=== PATIENT | male | born 1960 | race African-American/Black ===

== ENCOUNTER → 2020-05-01 15:13 | Outpatient (BNVA) | payer OTHER, SELFPAY | PROVIDERS: Visit Provider Surgery | DX: Z76.89 Persons encountering health services in other specified circumstances (principal) ==

== ENCOUNTER 2020-05-23 08:28 | Day surgery (SDC) | payer OTHER, SELFPAY ==
[2020-05-19 12:58] VITALS: BMI 27.3
--- NOTE | 2020-05-21 15:47 | HO.ANESPROP2 ---
Documented by User: Lesa Ngueyn 05/21/20 15:49 HPI - Anesthesia Eval Consult details Narrative: 60yo M Colonoscopy PMFSH Past Medical History Medical History BPH (benign prostatic hyperplasia) Hyperlipidemia Family History Family History Father History of leukemia Surgical History Surgical History H/O colonoscopy Social History Social History Alcohol intake: current Alcohol intake frequency: holidays/special occasions only Smoking Status: Never smoker Use of substances other than those prescribed or required for medical reasons: No Have you been hit, kicked, punched, or otherwise hurt by someone within the past year? If so, by whom?: No Advance Directives Information Provided: No Recently lost weight without trying: No Meds Allergies Allergy/AdvReac Type Severity Reaction Status Date / Time No Known Allergies Allergy Verified 05/23/20 08:47 Home Medications Medication Instructions Recorded Confirmed Type ezetimibe 10 mg tablet 10 mg PO DAILY 05/01/20 05/19/20 History oxybutynin chloride 5 mg 5 mg PO DAILY 05/01/20 05/19/20 History tablet,extended release 24 hr tamsulosin 0.4 mg capsule 0.4 mg PO DAILY 05/01/20 05/19/20 History simvastatin 40 mg PO BEDTIME 05/19/20 05/19/20 History Exam Exam Date and Time: May 21, 2020 1547 Height,Weight and Vital Signs: Height 6 ft Weight 91.626 kg Pertinent Lab Results Pertinent Lab Results: Laboratory Tests 04/07/20 04/07/20 09:18 09:18 WBC 2.6 L Hgb 14.3 Hct 42.1 Plt Count 178 Sodium 140 Potassium 4.3 Chloride 106 BUN 10 Creatinine 1.00 Assessment and Plan Assessment Anesthesia Assessment: Chart Reviewed Documented by User: Jeyson Eddy 05/23/20 09:30 PMFSH Past Medical History Medical History BPH (benign prostatic hyperplasia) Hyperlipidemia Family History Family History Father History of leukemia Surgical History Surgical History H/O colonoscopy Social History Social History Alcohol intake: current Alcohol intake frequency: holidays/special occasions only Smoking Status: Never smoker Use of substances other than those prescribed or required for medical reasons: No Have you been hit, kicked, punched, or otherwise hurt by someone within the past year? If so, by whom?: No Advance Directives Information Provided: No Recently lost weight without trying: No Meds Allergies Allergy/AdvReac Type Severity Reaction Status Date / Time No Known Allergies Allergy Verified 05/23/20 08:47 Home Medications Medication Instructions Recorded Confirmed Type ezetimibe 10 mg tablet 10 mg PO DAILY 05/01/20 05/19/20 History oxybutynin chloride 5 mg 5 mg PO DAILY 05/01/20 05/19/20 History tablet,extended release 24 hr tamsulosin 0.4 mg capsule 0.4 mg PO DAILY 05/01/20 05/19/20 History simvastatin 40 mg PO BEDTIME 05/19/20 05/19/20 History Exam Airway Mallampati Class: I TM Dist: >3cm Neck ROM: Full Assessment and Plan Assessment Anesthesia Assessment: Anesthesia Plan Discussed and Chart Reviewed Final Anesthetic Review NPO: Yes ASA Class: I Final Preanesthetic Review: No Changes in Pt Med Stat, Meds/Allgs Chart Reviewed, Consent Obtained/Reviewed and Anes Risks/Benef Reviewed Patient Risk: Low Procedure Risk: Low Anesthetic Plan Anesthetic Plan: MAC: and Agree w/ Assess. and Plan Disposition: Standard PACU
[2020-05-23 08:38] VITALS: BP 151/85; RESP 18; TEMP 36.8; O2SAT 98
--- NOTE | 2020-05-23 09:16 | MHC.SHP ---
Pre-Procedural Eval Section B Chief Complaint: Screening Allergies: Allergies Allergy/AdvReac Type Severity Reaction Status Date / Time No Known Allergies Allergy Verified 05/23/20 08:47 Plan Patient has been examined and remains a candidate for the planned procedure
[2020-05-23 10:00] VITALS: BP 134/67; PULSE 73; RESP 20; TEMP 36.4; O2SAT 95
--- NOTE | 2020-05-23 10:06 | PM.OP ---
Brief Operative Note Date of Service: 05/23/20 Pre-op diagnosis: colon ca screen Post-op diagnosis: same Procedure: colonoscopy Surgeon: Claude Zavala MD Anesthesia: MAC Estimated blood loss (mL): 0 Pathology: none sent Condition: stable Disposition: PACU
[2020-05-23 10:15] VITALS: BP 123/76; PULSE 73; RESP 18; O2SAT 98
--- NOTE | 2020-05-23 10:20 | OP_ITS ---
SURGEON: Claude Zavala MD INDICATIONS: The patient is a 60-year-old male, here for colon cancer screening by colonoscopy. He understood the techniques of procedure. He was aware of the risks, benefits, and alternatives. PREOPERATIVE DIAGNOSIS: Colon cancer screening. POSTOPERATIVE DIAGNOSIS: External hemorrhoids, otherwise, normal colonoscopy findings. PROCEDURE PERFORMED: ESTIMATED BLOOD LOSS: COMPLICATIONS: ANESTHESIA: ASSISTANTS: SPECIMENS: DESCRIPTION OF PROCEDURE: He was brought to the operating room, placed in left lateral decubitus position under monitored anesthesia care. A full digital rectal exam was done. He did have external hemorrhoids that were moderate-sized. I gently inserted the Olympus colonoscope into the anal orifice and advanced this with insufflation all the way to the cecum. The cecum was intubated. The cecum was identified by visualization of the cecal valve as well as the appendiceal orifice. The cecal mucosa was unremarkable. The scope was gradually withdrawn with careful examination of the entire colonic mucosa being done with scope withdrawal. The patient had good bowel prep, so it was unlikely that any lesion had been missed. The rectum was reached. There were no lesions seen. The anal canal was unremarkable except for external hemorrhoids. The scope was then withdrawn completely with desufflation. The patient tolerated the procedure well. There were no complications noted. He falls at average risk for colon cancer, so next colonoscopy maybe in the next 10 years. PROCEDURE DONE: Colonoscopy for colon cancer screening. MD MARIE Lilly/TAYLOR / [id number]
--- NOTE | 2020-05-23 10:24 | HO.POSTANES ---
Post Anesthesia Evaluation Post Anesthesia Evaluation Vital Signs: Vital Signs Temp Pulse Resp BP Pulse Ox 05/23/20 10:15 73 18 123/76 98 05/23/20 10:00 97.6 F 73 20 134/67 95 05/23/20 08:38 98.3 F 18 151/85 H 98 Anesthesia: Monitored Mental Status: Awake Pain Control: Satisfactory Nausea/Vomiting: None Hydration: Adequate Anesthesia-Related Issues: No Anes. Related Issues
== END 2020-05-23 11:15 | disposition home or self-care (01) ==
PROVIDERS: Visit Provider Surgery
PROC: 0DJD8ZZ Inspection of Lower Intestinal Tract, Via Natural or Artificial Opening Endoscopic (ICD-10-PCS; CPT 45378; principal; 2020-05-23 09:40)
DX: Z12.11 Encounter for screening for malignant neoplasm of colon (principal); K64.4 Residual hemorrhoidal skin tags; N40.0 Benign prostatic hyperplasia without lower urinary tract symptoms; E78.5 Hyperlipidemia, unspecified; Z79.899 Other long term (current) drug therapy; Z80.6 Family history of leukemia
CPT/HCPCS: 45378; J3010

== ENCOUNTER → 2020-06-04 09:18 | Outpatient (BNVA) | payer OTHER, SELFPAY | PROVIDERS: Visit Provider Surgery | DX: Z76.89 Persons encountering health services in other specified circumstances (principal) ==

== ENCOUNTER 2020-09-08 13:46 | Outpatient (REF) | payer OTHER, SELFPAY ==
[2020-09-08 15:00] LABS: Hematocrit 42.1 % (42-52); Mean Corpuscular HGB Conc 33.3 g/dl (31.0-36.0); Mean Corpuscular Hemoglobin 28.8 pg (27.0-33.0); Mean Corpuscular Volume 86.6 fL (80-98); Mean Platelet Volume 10.6 fL (9.4-12.4); Platelet Count 244 X10*3/uL (160-400); Red Blood Count 4.86 X10*6/uL (4.60-5.80); Red Cell Distribution Width 12.3 % (11.0-16.0); White Blood Count 3.2 X10*3/uL (4.8-10.8)
[2020-09-08 15:16] LABS: Glucose Urine UA NEG (NEG); Leukocyte Esterase Urine NEG (NEG); Nitrite Urine NEG (NEG); Specific Gravity - Urine 1.015 (1.005-1.025); Urine Blood NEG (NEG); Urine Ketones NEG (NEG); Urine Protein NEG (NEG-TRACE)
[2020-09-08 15:20] LABS: Appearance Urine CLEAR; Color Urine YELLOW
[2020-09-08 15:36] LABS: Alanine Aminotransferase 57 U/L (0-40); Albumin Level 4.6 g/dL (3.5-5.0); Alkaline Phosphatase 179 U/L (39-117); Anion Gap 14 (12-20); Aspartate Amino Transferase 33 U/L (5-37); Bilirubin Direct 0.5 mg/dL (0.0-0.5); Bilirubin Total 1.5 mg/dL (0.0-1.0); Blood Urea Nitrogen 10 mg/dL (9-16); Calcium 8.9 mg/dL (8.4-10.2); Carbon Dioxide 26 mmol/L (22-29); Chloride 105 mmol/L (96-108); Cholesterol 119 mg/dL; Estimated Glomerular Filt Rate > 60; Glucose Random 88 mg/dL (60-115); HDL Cholesterol 33 mg/dL; LDL Cholesterol Calculated 75 mg/dl; Potassium 4.2 mmol/L (3.3-5.1); Sodium 141 mmol/L (135-145); Total Protein 7.4 g/dL (6.5-8.0); Triglycerides 58 mg/dL
[2020-09-08 16:00] LABS: Prostate Specific Antigen Scr 3.21 ng/mL (<0.05-4.0)
== END 2020-09-08 13:47 | disposition home or self-care (01) ==
LOC: HO.LAB 13:46
PROVIDERS: PCP Internal Medicine; Visit Provider Internal Medicine
DX: N40.0 Benign prostatic hyperplasia without lower urinary tract symptoms (principal); E78.00 Pure hypercholesterolemia, unspecified; Z12.5 Encounter for screening for malignant neoplasm of prostate
CPT/HCPCS: 36415; 80048; 80061; 80076; 81003; 84153; 85027

== ENCOUNTER 2020-09-19 10:12 | Outpatient (REF) | payer OTHER, SELFPAY ==
--- NOTE | ~2020-09-19 | US_ITS ---
EXAMINATION: US VENOUS ULTRASOUND WITH DOPPLER LOWER EXTREMITY, LEFT CLINICAL INFORMATION: Acute embolism and thrombosis. COMPARISON: None TECHNIQUE: Ultrasound of the deep veins is performed from the hip to the calf with compression sonography and color and pulse Doppler assessment. Spectral analysis with color-flow imaging is performed. FINDINGS: There is normal venous compression and respiratory variation and augmented flow. The visualized common femoral vein, superficial femoral vein, profunda femoral vein, popliteal vein, and the trifurcation region shows no evidence of deep venous thrombosis. There is no significant popliteal fossa cyst. If the patient's symptoms persist, followup ultrasound in 5 days 7 days might be of value to exclude proximal propagation from a non-visualized calf vein. US/US venous duplex LE LT IMPRESSION: No DVT demonstrated in the left lower extremity.
== END 2020-09-19 10:13 | disposition home or self-care (01) ==
LOC: HO.US 10:12
PROVIDERS: PCP Internal Medicine; Visit Provider Nurse Practitioner Family
DX: I82.402 Acute embolism and thrombosis of unspecified deep veins of left lower extremity (principal)
CPT/HCPCS: 93971

== ENCOUNTER 2020-10-02 09:16 | Outpatient (REF) | payer OTHER, SELFPAY ==
--- NOTE | ~2020-10-02 | US_ITS ---
EXAMINATION: US ABDOMEN COMPLETE CLINICAL INFORMATION: Abnormal levels of other serum enzymes. COMPARISON: Ultrasound renal with bladder 03/11/2016. TECHNIQUE: Real-time imaging of the abdominal viscera. FINDINGS: PANCREAS: Normal. ABDOMINAL AORTA: The proximal, mid, and distal segments are normal in caliber. INFERIOR VENA CAVA: Visualized portions are normal. LIVER: Normal. The liver is normal in size. The liver contour is normal. Parenchymal echogenicity is normal. No focal hepatic lesion. There is no intrahepatic biliary duct dilatation seen. GALLBLADDER: There is a small, non-shadowing nonmobile polyp along the posterior gallbladder wall. The gallbladder is physiologically distended without evidence of stones, sludge, wall thickening or pericholecystic fluid. COMMON BILE DUCT: Normal in caliber measuring 0.6 cm in diameter. RIGHT KIDNEY: There is an anechoic cyst in the upper pole measuring 0.7 x 0.7 x 0.9 cm. No additional lesions are seen. No hydronephrosis or renal calculi. The kidney measures 11.0 cm in maximum dimension. LEFT KIDNEY: Normal. No hydronephrosis. No renal calculi or focal parenchymal lesions. The kidney measures 11.8 cm in maximum dimension. SPLEEN: Normal. The spleen measures 9.6 cm in maximum dimension. FREE FLUID: None. US/US abdomen complete IMPRESSION: Small, nonmobile gallbladder polyp measuring 3 mm. Small upper pole right renal cyst measuring 9 mm. The rest of the abdominal ultrasound is unremarkable.
== END 2020-10-02 09:17 | disposition home or self-care (01) ==
LOC: HO.US 09:16
PROVIDERS: Visit Provider Internal Medicine
DX: R74.8 Abnormal levels of other serum enzymes (principal)
CPT/HCPCS: 76700

== ENCOUNTER → 2020-10-06 07:50 | Outpatient (BNV) | payer OTHER, SELFPAY | PROVIDERS: PCP Internal Medicine; Referring Provider Internal Medicine; Visit Provider Internal Medicine | DX: D72.819 Decreased white blood cell count, unspecified (principal) | CPT/HCPCS: 99203; 99212; 99213 ==

== ENCOUNTER 2021-10-06 08:20 | Outpatient (REF) | payer OTHER, SELFPAY ==
[2021-10-06 09:08] LABS: Hematocrit 42.9 % (42.0-52.0); Mean Corpuscular HGB Conc 32.6 g/dl (31.0-36.0); Mean Corpuscular Hemoglobin 28.9 pg (27.0-33.0); Mean Corpuscular Volume 88.5 fL (80.0-98.0); Mean Platelet Volume 10.5 fL (9.4-12.4); Platelet Count 199 X10*3/uL (160-400); Red Blood Count 4.85 X10*6/uL (4.60-5.80); Red Cell Distribution Width 12.7 % (11.0-16.0)
[2021-10-06 09:48] LABS: Alanine Aminotransferase 42 U/L (0-40); Albumin Level 4.3 g/dL (3.5-5.0); Alkaline Phosphatase 141 U/L (39-117); Anion Gap 12 (12-20); Aspartate Amino Transferase 23 U/L (5-37); Bilirubin Direct 0.6 mg/dL (0.0-0.5); Bilirubin Total 1.8 mg/dL (0.0-1.0); Blood Urea Nitrogen 9 mg/dL (9-16); Calcium 9.3 mg/dL (8.4-10.2); Carbon Dioxide 26 mmol/L (22-29); Chloride 109 mmol/L (96-108); Cholesterol 119 mg/dL; Estimated Glomerular Filt Rate > 60; Glucose Random 100 mg/dL (60-115); HDL Cholesterol 39 mg/dL; LDL Cholesterol Calculated 72 mg/dl; Potassium 4.1 mmol/L (3.3-5.1); Sodium 143 mmol/L (135-145); Triglycerides 40 mg/dL
[2021-10-06 10:47] LABS: Appearance Urine CLEAR; Color Urine YELLOW; Glucose Urine UA NEG (NEG); Leukocyte Esterase Urine NEG (NEG); Nitrite Urine NEG (NEG); PH 7.5 (5.0-8.0); Urine Blood NEG (NEG); Urine Ketones NEG (NEG); Urine Protein NEG (NEG-TRACE)
== END 2021-10-06 08:21 | disposition home or self-care (01) ==
LOC: HO.LAB 08:20
PROVIDERS: PCP Internal Medicine; Visit Provider Internal Medicine
DX: I82.409 Acute embolism and thrombosis of unspecified deep veins of unspecified lower extremity (principal); R74.8 Abnormal levels of other serum enzymes; D72.819 Decreased white blood cell count, unspecified
CPT/HCPCS: 36415; 80048; 80061; 80076; 81003; 84443; 85027

== ENCOUNTER 2022-08-16 16:15 | Outpatient (REF) | payer OTHER, SELFPAY ==
--- NOTE | ~2022-08-16 | XR_ITS ---
EXAMINATION: XR CHEST CLINICAL INFORMATION: Pleurodynia. COMPARISON: None TECHNIQUE: 2 views of the chest were obtained. FINDINGS: No significant abnormality is noted involving the heart, lungs, mediastinum, bony thorax or soft tissues. XR/XR chest 2V IMPRESSION: Unremarkable examination.
== END 2022-08-16 16:16 | disposition home or self-care (01) ==
LOC: HO.HMGCX 16:15
PROVIDERS: PCP Internal Medicine; Visit Provider Internal Medicine
DX: R07.81 Pleurodynia (principal)
CPT/HCPCS: 71046

== ENCOUNTER 2022-08-21 08:48 | Outpatient (REF) | payer OTHER, SELFPAY ==
[2022-08-21 09:19] LABS: Hematocrit 43.4 % (42.0-52.0); Hemoglobin 14.4 g/dl (14.0-18.0); Mean Corpuscular HGB Conc 33.2 g/dl (31.0-36.0); Mean Corpuscular Hemoglobin 28.6 pg (27.0-33.0); Mean Corpuscular Volume 86.3 fL (80.0-98.0); Mean Platelet Volume 10.2 fL (9.4-12.4); Platelet Count 230 X10*3/uL (160-400); Red Blood Count 5.03 X10*6/uL (4.60-5.80)
[2022-08-21 09:54] LABS: Alanine Aminotransferase 21 U/L (0-40); Albumin Level 4.3 g/dL (3.5-5.0); Alkaline Phosphatase 175 U/L (39-117); Anion Gap 12 (12-20); Aspartate Amino Transferase 17 U/L (5-37); Bilirubin Direct 0.4 mg/dL (0.0-0.5); Bilirubin Total 1.5 mg/dL (0.0-1.0); Blood Urea Nitrogen 11 mg/dL (9-16); C Reactive Protein 0.67 mg/dL (< or = 0.50); Calcium 9.2 mg/dL (8.4-10.2); Carbon Dioxide 24 mmol/L (22-29); Chloride 108 mmol/L (96-108); Cholesterol 128 mg/dL; Estimated Glomerular Filt Rate > 60; Glucose Random 104 mg/dL (60-115); HDL Cholesterol 39 mg/dL; LDL Cholesterol Calculated 81 mg/dl; Sodium 140 mmol/L (135-145); Triglycerides 43 mg/dL
== END 2022-08-21 08:49 | disposition home or self-care (01) ==
LOC: HO.LAB 08:48
PROVIDERS: PCP Internal Medicine; Visit Provider Internal Medicine
DX: E78.00 Pure hypercholesterolemia, unspecified (principal)
CPT/HCPCS: 36415; 80048; 80061; 80076; 84443; 85027; 86140

== ENCOUNTER 2022-11-15 06:22 | Outpatient (REF) | payer OTHER, SELFPAY ==
[2022-11-15 07:59] LABS: Hematocrit 42.4 % (42.0-52.0); Hemoglobin 14.1 g/dl (14.0-18.0); Mean Corpuscular HGB Conc 33.3 g/dl (31.0-36.0); Mean Corpuscular Volume 87.2 fL (80.0-98.0); Mean Platelet Volume 10.9 fL (9.4-12.4); Platelet Count 228 X10*3/uL (160-400); Red Blood Count 4.86 X10*6/uL (4.60-5.80); Red Cell Distribution Width 13.4 % (11.0-16.0); White Blood Count 2.7 X10*3/uL (4.8-10.8)
[2022-11-15 08:30] LABS: Alanine Aminotransferase 34 U/L (0-40); Albumin Level 4.3 g/dL (3.5-5.0); Alkaline Phosphatase 162 U/L (39-117); Anion Gap 11 (12-20); Aspartate Amino Transferase 21 U/L (5-37); Bilirubin Direct 0.6 mg/dL (0.0-0.5); Blood Urea Nitrogen 13 mg/dL (9-16); C Reactive Protein < 0.10 mg/dL (< or = 0.50); Calcium 9.2 mg/dL (8.4-10.2); Carbon Dioxide 27 mmol/L (22-29); Chloride 108 mmol/L (96-108); Estimated Glomerular Filt Rate > 60; Glucose Random 88 mg/dL (60-115); Potassium 4.1 mmol/L (3.3-5.1); Sodium 142 mmol/L (135-145); Total Protein 6.9 g/dL (6.5-8.0)
== END 2022-11-15 06:23 | disposition home or self-care (01) ==
LOC: HO.LAB 06:22
PROVIDERS: PCP Internal Medicine; Visit Provider Internal Medicine
DX: D72.819 Decreased white blood cell count, unspecified (principal); R74.8 Abnormal levels of other serum enzymes
CPT/HCPCS: 36415; 80048; 80076; 85027; 86140

== ENCOUNTER 2023-07-21 08:21 | Outpatient (AMB) | payer OTHER, SELFPAY ==
--- NOTE | 2023-07-21 08:27 | MHC.PC.OV ---
Vital Signs 07/21/23 08:29 Height 6 ft Weight 200 lb 8 oz BMI 27.2 BP 120/72 Blood Pressure Location Lt brachial Position Sitting Pulse 78 Pulse Source Pulse Oximeter Pulse Oximetry (%) 96 Oxygen Delivery Method Room Air Intake Visit Reasons: phy Intake Note: Patient is here today for a physical. Permastone Installer Required: No Chemical Engineering Intern: Not Required per policy Accompanied by: Self / Same As Patient Allergies No Known Allergies Allergy (Verified 07/21/23 08:29) Medication List - Last Reconciled 07/21/23 by Topher Gongora MD atorvastatin 40 mg PO DAILY ezetimibe 10 mg PO DAILY tamsulosin 0.4 mg PO DAILY Tobacco use date assessed: 07/21/23 Fall risk assessment: No Falls in past year Last assessed Fall Risk: 07/21/23 Dental Screening Dental Screen Date: 07/21/23 Did you have a dental visit in the last 12 months?: Yes Did you have a dental problem in the last 6 months where you did not have access to dental care?: No Was dental information given to patient?: Patient has dentist HPI yariel HPI Details 63-year-old male presents to the office requesting an annual physical. [facility] Medical History Pain and swelling of left ankle Leucopenia Encounter for screening colonoscopy Hyperlipidemia BPH (benign prostatic hyperplasia) Surgical History H/O colonoscopy Family History Father History of leukemia Sister DVT (deep venous thrombosis) Sister DVT (deep venous thrombosis) Mother HTN (hypertension) Social History Housing: House Alcohol intake: current Alcohol intake frequency: holidays/special occasions only Alcohol type: wine Comment: advised to remove prior to procedure date Patient Tobacco Use Status: Never used Tobacco e-Cigarette/Vaping Use: Never Used Second Hand Smoke Exposure: No service: No Current occupational status: employed Current occupational exposures/hazards: No Cognitive needs: No Hearing needs: No Vision needs: Yes (glasses) Questionnaire PHQ-9 Over the last 2 weeks, how often have you been bothered by any of the following problems? 1. Little interest or pleasure in doing things: not at all 2. Feeling down, depressed, or hopeless: not at all 3. Trouble falling or staying asleep, or sleeping too much: not at all 4. Feeling tired or having little energy: not at all 5. Poor appetite or overeating: not at all 6. Feeling bad about yourself - or that you are a failure or have let yourself or your family down: not at all 7. Trouble concentrating on things, such as reading the newspaper or watching television: not at all 8. Moving or speaking so slowly that other people could have noticed. Or the opposite - being so fidgety or restless that you have been moving around a lot more than usual: not at all 9. Thoughts that you would be better off or of hurting yourself in some way: not at all Total score: 0 Depression Screening Interpretation: Negative Depression Screening Done: Yes Source: Developed by Drs. Chiki Franz, Neena Ortiz, Dmitri Poon and colleagues, with an educational marysol from [employer]. Thrive Questionnaire Date Thrive assessed: 07/21/23 I am a: Patient What is your living situation today?: I have a steady place to live Within the past 12 months, did the food you bought not last and you didn't have the money to get more?: Never true Within the past 12 months, did you worry whether your food would run out before you got money to buy more?: Never true Do you have trouble paying for medicines?: No Do you have trouble getting transportation to medical appointments?: No Do you have trouble paying your heating and electricity bill?: No Do you have trouble taking care of your child, family member or friend?: No Do you have trouble with day-to-day activities such as bathing, preparing meals, shopping, managing finances, etc.?: No Are you currently unemployed and looking for a job?: No Are you interested in more education?: No Currently or been in a relationship where the following occur: no concerns reported AUDIT C Alcohol Use Questionnaire (AUDIT-C) 1. How often do you have a drink containing alcohol?: Never 2. How many drinks containing alcohol do you have on a typical day when you are drinking?: 1 or 2 Total Score: 0 ERIC-7 AMB Questionnaire ERIC-7 Date ERIC - 7 assessed: 07/21/23 Feeling nervous, anxious, or on edge: 0 = Not at all Not being able to stop or control worryin = Not at all Worrying too much about different things: 0 = Not at all Trouble relaxin = Not at all Being so restless that it is hard to sit still: 0 = Not at all Becoming easily annoyed or irritable: 0 = Not at all Feeling afraid as if something awful might happen: 0 = Not at all Total ERIC-7 score (0-4 normal; 5-9 mild; 10-14 moderate; 15-21 severe): 0 Source: Developed by Drs. Chiki Franz, Neena Ortiz, Dmitri Poon and colleagues, with an educational marysol from [employer]. Physical exam (Primary Care) Vital Signs: Last Vital Signs Pulse 78 07/21/23 08:29 BP 120/72 07/21/23 08:29 Pulse Ox 96 07/21/23 08:29 Oxygen Delivery Method Room Air 07/21/23 08:29 BMI result Body Mass Index 27.2 Tobacco/Smoking Status: Tobacco use Status Tobacco use date assessed 07/21/23 07/21/23 08:31 Patient Tobacco Use Status Never used Tobacco 07/21/23 08:31 e-Cigarette/Vaping Use Never Used 07/21/23 08:31 PHQ-9: PHQ-9 Score PHQ-9: Total score 0 07/21/23 08:31 Depression Screening Interpretation: Negative Thrive Assessment: Date of Thrive Assessment Date Thrive assessed 07/21/23 07/21/23 08:31 Currently or been in a relationship where the following occur: no concerns reported Const General: cooperative and healthy appearing Nutritional Appearance: well nourished Orientation/consciousness: patient oriented x3 Limitations: no limitations HENMT Head: Yes normal to inspection Eyes General: appearance normal, both eyes and all related structures Neck Neck: Yes normal visual inspection Chest Chest palpation & inspection: normal palpation of entire chest wall Resp Effort & Inspection: normal respiratory effort Neuro General: patient oriented x3 Assessment and Plan Assessment & Plan (1) Annual physical exam: Code(s): Z00.00 - Encounter for general adult medical examination without abnormal findings Plan: Blood work has been ordered. Will call with results of the blood work. (2) Leucopenia: Code(s): D72.819 - Decreased white blood cell count, unspecified Plan: This condition has been stable. He is already seen a clarity developer for it. (3) BPH (benign prostatic hyperplasia): Code(s): N40.0 - Benign prostatic hyperplasia without lower urinary tract symptoms Qualifiers: Lower urinary tract symptom presence: unspecified whether lower urinary tract symptoms present Qualified Code(s): N40.0 - Benign prostatic hyperplasia without lower urinary tract symptoms Plan: PSA will be checked. Continue medications. (4) Hyperlipidemia: Code(s): E78.5 - Hyperlipidemia, unspecified Qualifiers: Hyperlipidemia type: pure hypercholesterolemia Qualified Code(s): E78.00 - Pure hypercholesterolemia, unspecified Plan: Will call with results of blood work. Coding Level of Care Code New Pt Prev Care 40-64y(57434) Diagnoses Annual physical exam Z00.00 Leucopenia D72.819 Benign prostatic hyperplasia, unspecified whether lower urinary tract symptoms present N40.0 Lower urinary tract symptom presence: unspecified whether lower urinary tract symptoms present Pure hypercholesterolemia E78.00 Hyperlipidemia type: pure hypercholesterolemia
[2023-07-21 08:29] VITALS: BP 120/72; PULSE 78; O2SAT 96; BMI 27.2
== END 2023-07-21 09:00 | disposition home or self-care (01) ==
PROVIDERS: PCP Internal Medicine; Visit Provider Internal Medicine
DX: Z00.00 Encounter for general adult medical examination without abnormal findings (principal); D72.819 Decreased white blood cell count, unspecified; N40.0 Benign prostatic hyperplasia without lower urinary tract symptoms; E78.00 Pure hypercholesterolemia, unspecified
CPT/HCPCS: 99386

== ENCOUNTER 2023-07-21 09:09 | Outpatient (REF) | payer OTHER, SELFPAY ==
[2023-07-21 09:38] LABS: Hematocrit 41.1 % (42.0-52.0); Hemoglobin 13.9 g/dl (14.0-18.0); Mean Corpuscular HGB Conc 33.8 g/dl (31.0-36.0); Mean Corpuscular Hemoglobin 29.4 pg (27.0-33.0); Mean Corpuscular Volume 86.9 fL (80.0-98.0); Mean Platelet Volume 10.1 fL (9.4-12.4); Platelet Count 214 X10*3/uL (160-400); Red Blood Count 4.73 X10*6/uL (4.60-5.80); White Blood Count 4.6 X10*3/uL (4.8-10.8)
[2023-07-21 10:13] LABS: Alanine Aminotransferase 23 U/L (0-40); Alkaline Phosphatase 152 U/L (39-117); Anion Gap 12 (12-20); Aspartate Amino Transferase 17 U/L (5-37); Bilirubin Direct 0.4 mg/dL (0.0-0.5); Blood Urea Nitrogen 16 mg/dL (9-16); Calcium 9.2 mg/dL (8.4-10.2); Carbon Dioxide 26 mmol/L (22-29); Chloride 110 mmol/L (96-108); Cholesterol 140 mg/dL (<200); Estimated Glomerular Filt Rate > 60; Glucose Random 86 mg/dL (60-115); HDL Cholesterol 45 mg/dL (>40); LDL Cholesterol Calculated 84 mg/dL (<100); Potassium 3.9 mmol/L (3.3-5.1); Sodium 144 mmol/L (135-145); Total Protein 7.1 g/dL (6.5-8.0); Triglycerides 57 mg/dL (<150)
[2023-07-21 10:27] LABS: Prostate Specific Antigen Scr 3.33 ng/mL (<0.05-4.0)
[2023-07-21 10:32] LABS: Thyroid Stimulating Hormone 1.71 uIU/mL (0.32-4.0)
== END 2023-07-21 09:10 | disposition home or self-care (01) ==
LOC: HO.LAB 09:09
PROVIDERS: PCP Internal Medicine; Visit Provider Internal Medicine
DX: Z12.5 Encounter for screening for malignant neoplasm of prostate (principal); N40.0 Benign prostatic hyperplasia without lower urinary tract symptoms; R74.8 Abnormal levels of other serum enzymes
CPT/HCPCS: 36415; 80048; 80061; 80076; 84153; 84443; 85027

== ENCOUNTER 2024-02-13 07:53 | Outpatient (AMB) | payer OTHER, SELFPAY ==
[2024-02-13 08:05] VITALS: BP 132/70; PULSE 73; O2SAT 98; BMI 27.1
--- NOTE | 2024-02-13 08:05 | A.OFFPC_ITS ---
Vital Signs 02/13/24 08:05 Height 6 ft Weight 200 lb BMI 27.1 BP 132/70 Blood Pressure Location Lt brachial Position Sitting Pulse 73 Pulse Source Pulse Oximeter Pulse Oximetry (%) 98 Oxygen Delivery Method Room Air Intake Visit Reasons: 6MoF/U Director [facility] Required: No Allergies No Known Allergies Allergy (Verified 02/13/24 08:27) Medication List - Last Reconciled 02/13/24 by Topher Gongora MD atorvastatin 40 mg PO DAILY ezetimibe 10 mg PO DAILY tamsulosin 0.4 mg PO DAILY Tobacco use date assessed: 07/21/23 Fall risk assessment: No Falls in past year Last assessed Fall Risk: 02/13/24 Dental Screening Dental Screen Date: 07/21/23 HPI 6MoF/U HPI Details 63-year-old male presents to the office to discuss his chronic medical conditions. Patient is at baseline state of health. Compliant with all medications and reporting no side effects. Able to function and do all activities of daily living. Does not follow any particular diet or exercise regimen. Able to drive in the evening. Patient is independent and take care of his finances independently. Reports no incontinence to urine. [facility] [place] Medical History Pain and swelling of left ankle Leucopenia Encounter for screening colonoscopy Hyperlipidemia BPH (benign prostatic hyperplasia) Surgical History H/O colonoscopy Family History Father History of leukemia Sister DVT (deep venous thrombosis) Sister DVT (deep venous thrombosis) Mother HTN (hypertension) Social History Housing: House Alcohol intake: current Alcohol intake frequency: holidays/special occasions only Alcohol type: wine Comment: advised to remove prior to procedure date Patient Tobacco Use Status: Never used Tobacco e-Cigarette/Vaping Use: Never Used Second Hand Smoke Exposure: No service: No Current occupational status: employed Current occupational exposures/hazards: No Cognitive needs: No Hearing needs: No Vision needs: Yes (glasses) Questionnaire Thrive Questionnaire Date Thrive assessed: 07/21/23 AUDIT C Alcohol Use Questionnaire (AUDIT-C) 1. How often do you have a drink containing alcohol?: Never 2. How many drinks containing alcohol do you have on a typical day when you are drinking?: 1 or 2 3. How often do you have six or more drinks on one occasion?: Never Total Score: 0 ERIC-7 AMB Questionnaire ERIC-7 Date ERIC - 7 assessed: 07/21/23 Source: Developed by Drs. Chiki Franz, Neena Ortiz, Dmitri Poon and colleagues, with an educational marysol from [employer]. Physical exam (Primary Care) Vital Signs: Last Vital Signs Pulse 73 02/13/24 08:05 BP 132/70 02/13/24 08:05 Pulse Ox 98 02/13/24 08:05 Oxygen Delivery Method Room Air 02/13/24 08:05 Care Plan Goal for BP management: Blood pressure is stable. BMI result Body Mass Index 27.1 Tobacco/Smoking Status: Tobacco use Status Tobacco use date assessed 07/21/23 02/13/24 08:11 Patient Tobacco Use Status Never used Tobacco 02/13/24 08:11 e-Cigarette/Vaping Use Never Used 02/13/24 08:11 Thrive Assessment: Date of Thrive Assessment Date Thrive assessed 07/21/23 02/13/24 08:11 Const General: cooperative and healthy appearing Nutritional Appearance: well nourished Orientation/consciousness: patient oriented x3 Limitations: no limitations HENMT Head: Yes normal to inspection Eyes General: appearance normal, both eyes and all related structures Neck Neck: Yes normal visual inspection Chest Chest palpation & inspection: normal palpation of entire chest wall Resp Effort & Inspection: normal respiratory effort Neuro General: patient oriented x3 Assessment and Plan Assessment & Plan (1) Elevated liver enzymes: Code(s): R74.8 - Abnormal levels of other serum enzymes Plan: Blood work is to be repeated. Will call with the results. (2) Leucopenia: Code(s): D72.819 - Decreased white blood cell count, unspecified Plan: Condition is stable. We will repeat CBC. Patient is already seen a airline counter agent in this regard. (3) Hyperlipidemia: Code(s): E78.5 - Hyperlipidemia, unspecified Qualifiers: Hyperlipidemia type: pure hypercholesterolemia Qualified Code(s): E78.00 - Pure hypercholesterolemia, unspecified Plan: Fasting cholesterol levels have been ordered. Based on the results the statin dosage will be adjusted. (4) BPH (benign prostatic hyperplasia): Code(s): N40.0 - Benign prostatic hyperplasia without lower urinary tract symptoms Qualifiers: Lower urinary tract symptom presence: unspecified whether lower urinary tract symptoms present Qualified Code(s): N40.0 - Benign prostatic hyperplasia without lower urinary tract symptoms Plan: PSA to be checked. Currently no symptoms. Coding Level of Care Code Est Pt Level 4 (74086) Complex EM visit Add On G2211 Diagnoses Elevated liver enzymes R74.8 Leucopenia D72.819 Pure hypercholesterolemia E78.00 Hyperlipidemia type: pure hypercholesterolemia Benign prostatic hyperplasia, unspecified whether lower urinary tract symptoms present N40.0 Lower urinary tract symptom presence: unspecified whether lower urinary tract symptoms present
== END 2024-02-13 08:20 | disposition home or self-care (01) ==
PROVIDERS: PCP Internal Medicine; Visit Provider Internal Medicine
DX: R74.8 Abnormal levels of other serum enzymes (principal); D72.819 Decreased white blood cell count, unspecified; E78.00 Pure hypercholesterolemia, unspecified; N40.0 Benign prostatic hyperplasia without lower urinary tract symptoms
CPT/HCPCS: 99214; G2211

== ENCOUNTER 2024-07-20 07:21 | Outpatient (REF) | payer OTHER, SELFPAY ==
[2024-07-20 08:34] LABS: Hematocrit 43.2 % (42.0-52.0); Hemoglobin 14.4 g/dl (14.0-18.0); Mean Corpuscular HGB Conc 33.3 g/dl (31.0-36.0); Mean Corpuscular Volume 86.9 fL (80.0-98.0); Mean Platelet Volume 10.5 fL (9.4-12.4); Platelet Count 171 X10*3/uL (160-400); Red Blood Count 4.97 X10*6/uL (4.60-5.80); Red Cell Distribution Width 13.2 % (11.0-16.0)
[2024-07-20 08:37] LABS: White Blood Count 2.4 X10*3/uL (4.8-10.8)
[2024-07-20 08:48] LABS: Appearance Urine Clear; Color Urine Yellow; Glucose Urine UA Negative (Negative); Leukocyte Esterase Urine Negative (Negative); Nitrite Urine Negative (Negative); Specific Gravity - Urine 1.015 (1.005-1.025); Urine Blood Negative (Negative); Urine Ketones Negative (Negative); Urine Protein Negative (Neg-Trace)
[2024-07-20 09:23] LABS: Prostate Specific Antigen Scr 5.65 ng/mL (<0.05-4.0)
[2024-07-20 09:47] LABS: Alanine Aminotransferase 39 U/L (0-40); Albumin Level 4.2 g/dL (3.5-5.0); Anion Gap 9 (12-20); Aspartate Amino Transferase 29 U/L (5-37); Bilirubin Direct 0.4 mg/dL (0.0-0.5); Bilirubin Total 1.6 mg/dL (0.0-1.0); Blood Urea Nitrogen 12 mg/dL (9-16); Carbon Dioxide 27 mmol/L (22-29); Chloride 111 mmol/L (96-108); Cholesterol 122 mg/dL (<200); Estimated Glomerular Filt Rate > 60; Glucose Random 94 mg/dL (60-115); Potassium 4.3 mmol/L (3.3-5.1); Sodium 143 mmol/L (135-145); Total Protein 7.2 g/dL (6.5-8.0); Triglycerides 42 mg/dL (<150)
[2024-07-20 09:48] LABS: Alkaline Phosphatase 141 U/L (39-117); HDL Cholesterol 46 mg/dL (>40); LDL Cholesterol Calculated 68 mg/dL (<100)
== END 2024-07-20 07:22 | disposition home or self-care (01) ==
LOC: HO.LAB 07:21
PROVIDERS: PCP Internal Medicine; Visit Provider Internal Medicine
DX: N40.0 Benign prostatic hyperplasia without lower urinary tract symptoms (principal); E78.00 Pure hypercholesterolemia, unspecified; D72.819 Decreased white blood cell count, unspecified; Z12.5 Encounter for screening for malignant neoplasm of prostate
CPT/HCPCS: 36415; 80048; 80061; 80076; 81003; 84153; 84443; 85027

== ENCOUNTER 2024-07-26 08:17 | Outpatient (AMB) | payer OTHER, SELFPAY ==
--- NOTE | 2024-07-26 08:33 | A.OFFPC_ITS ---
Vital Signs 07/26/24 08:34 Height 6 ft Weight 207 lb 8 oz BMI 28.1 BP 130/68 Blood Pressure Location Lt brachial Position Sitting Pulse 72 Pulse Source Pulse Oximeter Temp 97.1 F Temp Source Skin Pulse Oximetry (%) 96 Oxygen Delivery Method Room Air Intake Visit Reasons: Annual Exam Intake Note: Patient is here today for a physical. Pt decline flu shot today. 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: Not Required per policy Accompanied by: Self / Same As Patient Allergies No Known Allergies Allergy (Verified 07/26/24 08:34) Tobacco use date assessed: 07/26/24 Fall risk assessment: No Falls in past year Last assessed Fall Risk: 07/26/24 Dental Screening Dental Screen Date: 07/26/24 Did you have a dental visit in the last 12 months?: Yes Did you have a dental problem in the last 6 months where you did not have access to dental care?: No Was dental information given to patient?: Patient has dentist [facility] Medical History Pain and swelling of left ankle Leucopenia Encounter for screening colonoscopy Hyperlipidemia BPH (benign prostatic hyperplasia) Surgical History H/O colonoscopy (06/10/20) Family History Father History of leukemia Sister DVT (deep venous thrombosis) Sister DVT (deep venous thrombosis) Mother HTN (hypertension) Social History Housing: House Alcohol intake: current Alcohol intake frequency: holidays/special occasions only Alcohol type: wine Comment: advised to remove prior to procedure date Patient Tobacco Use Status: Never used Tobacco e-Cigarette/Vaping Use: Never Used Second Hand Smoke Exposure: No service: No Current occupational status: employed Current occupational exposures/hazards: No Cognitive needs: No Hearing needs: No Vision needs: Yes (glasses) Questionnaire PHQ-9 Over the last 2 weeks, how often have you been bothered by any of the following problems? 1. Little interest or pleasure in doing things: not at all 2. Feeling down, depressed, or hopeless: not at all 3. Trouble falling or staying asleep, or sleeping too much: not at all 4. Feeling tired or having little energy: not at all 5. Poor appetite or overeating: not at all 6. Feeling bad about yourself - or that you are a failure or have let yourself or your family down: not at all 7. Trouble concentrating on things, such as reading the newspaper or watching television: not at all 8. Moving or speaking so slowly that other people could have noticed. Or the opposite - being so fidgety or restless that you have been moving around a lot more than usual: not at all 9. Thoughts that you would be better off or of hurting yourself in some way: not at all Total score: 0 Depression Screening Interpretation: Negative Depression Screening Done: Yes Source: Developed by Drs. Chiki Franz, Neena Ortiz, Dmitri Poon and colleagues, with an educational marysol from [employer]. Thrive Questionnaire Date Thrive assessed: 07/26/24 I am a: Patient What is your living situation today?: I have a steady place to live Within the past 12 months, did the food you bought not last and you didn't have the money to get more?: Never true Within the past 12 months, did you worry whether your food would run out before you got money to buy more?: Never true Do you have trouble paying for medicines?: No Do you have trouble getting transportation to medical appointments?: No Do you have trouble paying your heating and electricity bill?: No Do you have trouble taking care of your child, family member or friend?: No Do you have trouble with day-to-day activities such as bathing, preparing meals, shopping, managing finances, etc.?: No Are you currently unemployed and looking for a job?: No Are you interested in more education?: No Please select the resources that you would like help with: None Currently or been in a relationship where the following occur: No concerns reported THRIVE Score: 0 AUDIT C Alcohol Use Questionnaire (AUDIT-C) 1. How often do you have a drink containing alcohol?: Monthly or less 2. How many drinks containing alcohol do you have on a typical day when you are drinking?: 1 or 2 3. How often do you have six or more drinks on one occasion?: Never Total Score: 1 ERIC-7 AMB Questionnaire ERIC-7 Date ERIC - 7 assessed: 07/26/24 Feeling nervous, anxious, or on edge: 0 = Not at all Not being able to stop or control worryin = Not at all Worrying too much about different things: 0 = Not at all Trouble relaxin = Not at all Being so restless that it is hard to sit still: 0 = Not at all Becoming easily annoyed or irritable: 0 = Not at all Feeling afraid as if something awful might happen: 0 = Not at all Total ERIC-7 score (0-4 normal; 5-9 mild; 10-14 moderate; 15-21 severe): 0 Source: Developed by Drs. Chiki Franz, Neena Ortiz, Dmitri Poon and colleagues, with an educational marsyol from [employer]. Physical exam (Primary Care) Vital Signs: Last Vital Signs Temp 97.1 F 07/26/24 08:34 Pulse 72 07/26/24 08:34 BP 130/68 07/26/24 08:34 Pulse Ox 96 07/26/24 08:34 Oxygen Delivery Method Room Air 07/26/24 08:34 BMI result Body Mass Index 28.1 Tobacco/Smoking Status: Tobacco use Status Tobacco use date assessed 07/26/24 07/26/24 08:39 Patient Tobacco Use Status Never used Tobacco 07/26/24 08:39 e-Cigarette/Vaping Use Never Used 07/26/24 08:39 PHQ-9: PHQ-9 Score PHQ-9: Total score 0 07/26/24 08:39 Depression Screening Interpretation: Negative Thrive Assessment: Date of Thrive Assessment Date Thrive assessed 07/26/24 07/26/24 08:39 Currently or been in a relationship where the following occur: No concerns reported Coding Level of Care Code Est Pt Level 4 (88027) Complex EM visit Add On G2211 Diagnoses Pure hypercholesterolemia E78.00 Hyperlipidemia type: pure hypercholesterolemia Elevated liver enzymes R74.8 Benign prostatic hyperplasia, unspecified whether lower urinary tract symptoms present N40.0 Lower urinary tract symptom presence: unspecified whether lower urinary tract symptoms present Leucopenia D72.819 Assessment & Plan Assessment & Plan (1) Hyperlipidemia: Code(s): E78.5 - Hyperlipidemia, unspecified Category: Medical Qualifiers: Hyperlipidemia type: pure hypercholesterolemia Qualified Code(s): E78.00 - Pure hypercholesterolemia, unspecified Plan: LDL levels are in range. Continue combination of meds. (2) Elevated liver enzymes: Code(s): R74.8 - Abnormal levels of other serum enzymes Category: Medical Plan: BW revd. Alk phos slightly elevated. No recent change. (3) BPH (benign prostatic hyperplasia): Code(s): N40.0 - Benign prostatic hyperplasia without lower urinary tract symptoms Category: Medical Qualifiers: Lower urinary tract symptom presence: unspecified whether lower urinary tract symptoms present Qualified Code(s): N40.0 - Benign prostatic hyperplasia without lower urinary tract symptoms Plan: PSA is elevated. Has a urology appt in the coming weeks (4) Leucopenia: Code(s): D72.819 - Decreased white blood cell count, unspecified Category: Medical Plan: Stable. Plan History of Present Illness The patient is a 64-year-old male presenting for a wellness visit. He reports having undergone recent blood work which showed his cholesterol levels are within the normal range due to ongoing treatment with two medications. There has been a slight elevation in his PSA levels, although it is not of significant concern, as he is under continuous monitoring by his urologist. Regular follow- up is scheduled for the next month. Leukocytosis has been noted historically, but it remains stable without causing any current distress. The patient does not report any concerning symptoms and states that his overall health and functioning are satisfactory. Social History - The patient is employed and reports that work is going well. - He has recently traveled to [place] for a personal trip. - The patient is and perceives his family relationships as positive and supportive. Review of Systems - General: Denies fatigue or weight loss. - Respiratory: Denies shortness of breath or persistent cough. - Cardiovascular: Denies chest pain or palpitations. - Gastrointestinal: Denies abdominal pain or changes in bowel habits. - Genitourinary: Reports no urinary symptoms or discomfort. - Musculoskeletal: Denies joint pain or limited range of motion. Physical Exam General: Cooperative and healthy appearing Nutritional Appearance: Well nourished Orientation/consciousness: Patient oriented x3 Limitations: No limitations Head: Normal to inspection General: Appearance normal, both eyes and all related structures Neck: Normal visual inspection Chest: Normal palpation of entire chest wall Respiratory: Normal respiratory effort Neurology: Patient oriented x3 Results - Labs: Cholesterol levels within normal limits. PSA levels slightly elevated but not a concern. Leukocyte count persistently elevated. Plan - Continue current medications for hypercholesterolemia. - Follow up with urologist as planned for monitoring of prostate health. - Maintain regular monitoring of leukocyte count. - Schedule the next appointment for a routine check-up in six months. Patient was informed and verbally consented to the use of an ambient scribe for clinic note documentation during this visit. Discussion Notes During the visit, we discussed the stability and management of the patient's current health conditions. I confirmed that the cholesterol management plan is effective, as evidenced by lab results. For the elevated PSA, I reassured the patient that ongoing monitoring is in place with his urologist and agreed that no immediate action is necessary. We also reviewed the persistent leukocytosis and noted that it has not shown any concerning changes, hence does not require intervention at this time. We reviewed the importance of continued adherence to current medications and encouraged regular follow-up visits to ensure ongoing health maintenance. Patient Instructions - Continue taking prescribed cholesterol medications. - Attend the scheduled urology consult next month. - Monitor for any new or worsening symptoms and report them, if necessary. - Maintain regular lifestyle habits that support health, including balanced nutrition and physical activity. - Keep the six-month follow-up appointment for routine evaluation.
[2024-07-26 08:34] VITALS: BP 130/68; PULSE 72; TEMP 36.2; O2SAT 96; BMI 28.1
== END 2024-07-26 09:15 | disposition home or self-care (01) ==
PROVIDERS: PCP Internal Medicine; Visit Provider Internal Medicine
DX: E78.00 Pure hypercholesterolemia, unspecified (principal); R74.8 Abnormal levels of other serum enzymes; N40.0 Benign prostatic hyperplasia without lower urinary tract symptoms; D72.819 Decreased white blood cell count, unspecified

== ENCOUNTER → 2024-07-26 08:17 | Outpatient (BNVA) | payer OTHER, SELFPAY | PROVIDERS: PCP Internal Medicine; Visit Provider Internal Medicine ==

== ENCOUNTER 2025-01-31 07:42 | Outpatient (AMB) | payer OTHER, SELFPAY ==
[2025-01-31 08:06] VITALS: BP 144/80; PULSE 68; RESP 18; TEMP 36.3; O2SAT 95; BMI 27.3
--- NOTE | 2025-01-31 08:06 | A.OFFPC_ITS ---
Vital Signs 01/31/25 08:06 Height 6 ft Weight 201 lb 2 oz BMI 27.3 BP 144/80 H Blood Pressure Location Lt brachial Position Sitting Respiration 18 Pulse 68 Pulse Source Pulse Oximeter Temp 97.3 F Temp Source Temporal Artery Scan Pulse Oximetry (%) 95 Oxygen Delivery Method Room Air Intake Visit Reasons: 6mth f/u Allergies No Known Allergies Allergy (Verified 01/31/25 08:08) Tobacco use date assessed: 01/31/25 Fall risk assessment: No Falls in past year Last assessed Fall Risk: 01/31/25 Dental Screening Dental Screen Date: 01/31/25 Did you have a dental visit in the last 12 months?: Yes Did you have a dental problem in the last 6 months where you did not have access to dental care?: No Was dental information given to patient?: Patient has dentist [facility] Medical History Pain and swelling of left ankle Leucopenia Encounter for screening colonoscopy Hyperlipidemia BPH (benign prostatic hyperplasia) Surgical History H/O colonoscopy (05/23/20) Family History Father History of leukemia Sister DVT (deep venous thrombosis) Sister DVT (deep venous thrombosis) Mother HTN (hypertension) Social History Housing: House Alcohol intake: current Alcohol intake frequency: holidays/special occasions only Alcohol type: wine Comment: advised to remove prior to procedure date Patient Tobacco Use Status: Never used Tobacco e-Cigarette/Vaping Use: Never Used Second Hand Smoke Exposure: No service: No Current occupational status: employed Current occupational exposures/hazards: No Cognitive needs: No Hearing needs: No Vision needs: Yes (glasses) Questionnaire PHQ-9 Over the last 2 weeks, how often have you been bothered by any of the following problems? 1. Little interest or pleasure in doing things: not at all 2. Feeling down, depressed, or hopeless: not at all 3. Trouble falling or staying asleep, or sleeping too much: not at all 4. Feeling tired or having little energy: not at all 5. Poor appetite or overeating: not at all 6. Feeling bad about yourself - or that you are a failure or have let yourself or your family down: not at all 7. Trouble concentrating on things, such as reading the newspaper or watching television: not at all 8. Moving or speaking so slowly that other people could have noticed. Or the opposite - being so fidgety or restless that you have been moving around a lot more than usual: not at all 9. Thoughts that you would be better off or of hurting yourself in some way: not at all Total score: 0 Depression Screening Interpretation: Negative Depression Screening Done: Yes Source: Developed by Drs. Chiki Franz, Neena Ortiz, Dmitri Poon and colleagues, with an educational marysol from [employer]. Thrive Questionnaire Date Thrive assessed: 07/19/24 I am a: Patient What is your living situation today?: I have a steady place to live Within the past 12 months, did the food you bought not last and you didn't have the money to get more?: Never true Within the past 12 months, did you worry whether your food would run out before you got money to buy more?: Never true Do you have trouble paying for medicines?: No Do you have trouble getting transportation to medical appointments?: No Do you have trouble paying your heating and electricity bill?: No Do you have trouble taking care of your child, family member or friend?: No Do you have trouble with day-to-day activities such as bathing, preparing meals, shopping, managing finances, etc.?: No Are you currently unemployed and looking for a job?: No Are you interested in more education?: No Please select the resources that you would like help with: None Currently or been in a relationship where the following occur: No concerns reported THRIVE Score: 0 AUDIT C Alcohol Use Questionnaire (AUDIT-C) 1. How often do you have a drink containing alcohol?: Monthly or less 2. How many drinks containing alcohol do you have on a typical day when you are drinking?: 1 or 2 3. How often do you have six or more drinks on one occasion?: Never Total Score: 1 ERIC-7 AMB Questionnaire ERIC-7 Date ERIC - 7 assessed: 07/26/24 Feeling nervous, anxious, or on edge: 0 = Not at all Not being able to stop or control worryin = Not at all Worrying too much about different things: 0 = Not at all Trouble relaxin = Not at all Being so restless that it is hard to sit still: 0 = Not at all Becoming easily annoyed or irritable: 0 = Not at all Feeling afraid as if something awful might happen: 0 = Not at all Total ERIC-7 score (0-4 normal; 5-9 mild; 10-14 moderate; 15-21 severe): 0 Source: Developed by Drs. Chiki Franz, Neena Ortiz, Dmitri Poon and colleagues, with an educational marysol from [employer]. Physical exam (Primary Care) Vital Signs: Last Vital Signs Temp 97.3 F 01/31/25 08:06 Pulse 68 01/31/25 08:06 Resp 18 01/31/25 08:06 BP 144/80 H 01/31/25 08:06 Pulse Ox 95 01/31/25 08:06 Oxygen Delivery Method Room Air 01/31/25 08:06 BMI result Body Mass Index 27.3 Tobacco/Smoking Status: Tobacco use Status Tobacco use date assessed 01/31/25 01/31/25 08:09 Patient Tobacco Use Status Never used Tobacco 01/31/25 08:09 e-Cigarette/Vaping Use Never Used 01/31/25 08:09 PHQ-9: PHQ-9 Score PHQ-9: Total score 0 01/31/25 08:09 Depression Screening Interpretation: Negative Thrive Assessment: Date of Thrive Assessment Date Thrive assessed 07/19/24 01/31/25 08:09 Currently or been in a relationship where the following occur: No concerns reported Coding Level of Care Code Est Pt Level 4 (69558) Complex EM visit Add On G2211 Diagnoses Pure hypercholesterolemia E78.00 Hyperlipidemia type: pure hypercholesterolemia Benign prostatic hyperplasia, unspecified whether lower urinary tract symptoms present N40.0 Lower urinary tract symptom presence: unspecified whether lower urinary tract symptoms present Assessment & Plan Assessment & Plan (1) Hyperlipidemia: Code(s): E78.5 - Hyperlipidemia, unspecified Category: Medical Qualifiers: Hyperlipidemia type: pure hypercholesterolemia Qualified Code(s): E78.00 - Pure hypercholesterolemia, unspecified Plan: LDL in range. Continue current meds. (2) BPH (benign prostatic hyperplasia): Code(s): N40.0 - Benign prostatic hyperplasia without lower urinary tract symptoms Category: Medical Qualifiers: Lower urinary tract symptom presence: unspecified whether lower urinary tract symptoms present Qualified Code(s): N40.0 - Benign prostatic hyperplasia without lower urinary tract symptoms Plan: PSA is stable. Plan History of Present Illness - The patient is a 64-year-old male presenting with a routine follow-up visit for prostate health monitoring. - Prostate health: The patient reports stable prostate-specific antigen levels with no increase, as confirmed by a recent urologist visit two weeks ago. - Previous blood work conducted in October was reported as satisfactory, with plans to reassess during the next visit. Social History - Family: The patient has a son in the [employer], stationed at [place], [place], and a daughter in [place], [place]. - Travel: Plans to visit [place] next month. Review of Systems - General: Denies any new health concerns. Physical Exam General: Cooperative and healthy appearing Nutritional Appearance: Well nourished Orientation/consciousness: Patient oriented x3 Limitations: No limitations Head: Normal to inspection General: Appearance normal, both eyes and all related structures Neck: Normal visual inspection Chest: Normal palpation of entire chest wall Respiratory: N ormal respiratory effort Neurology: Patient oriented x3, but patient reports a sudden onset of an eye condition affecting vision, possibly related to pressure changes. Results - Labs: Previous blood work in October was satisfactory. Plan 1. Prostate Health Monitoring - Continue regular follow-up with urologist to monitor prostate-specific antigen levels. - Plan to reassess blood work during the next visit. Discussion Notes During the visit, we discussed the patient's stable prostate-specific antigen levels and the importance of continued monitoring with the urologist. We also reviewed the satisfactory results of the previous blood work conducted in October and planned for reassessment during the next visit. Patient Instructions - Continue regular follow-up with your urologist. - Plan to have blood work reassessed during your next visit.
== END 2025-01-31 08:21 | disposition home or self-care (01) ==
LOC: HO.HMCH 07:43
PROVIDERS: PCP Internal Medicine; Visit Provider Internal Medicine
DX: E78.00 Pure hypercholesterolemia, unspecified (principal); N40.0 Benign prostatic hyperplasia without lower urinary tract symptoms